=== PATIENT | female | born 1940 ===

== ENCOUNTER 2022-03-07 15:46 | Outpatient (RCR) ==
[2022-03-07 16:20] LABS: ALBUMIN 2.3 g/dL (3.5-5.0); ALBUMIN/GLOBULIN RATIO 0.8 (0.8-2.0); ANION GAP 16.6 mmol/L (8-16); CALCIUM 8.3 mg/dL (8.4-10.2); CREATININE, SERUM 4.02 mg/dL (0.57-1.11); POTASSIUM 3.6 mmol/L (3.5-5.1)
== END 2022-03-28 ==
LOC: NPA 15:46
PROVIDERS: ATTEND Physical Medicine & Rehabilitation
DX: Z13.89 Encounter for screening for other disorder (principal)
CPT/HCPCS: 36415; 80053